=== PATIENT | female | born 2000 | race Caucasian/White ===

== ENCOUNTER 2023-12-15 18:56 | Emergency (ER) | payer BC, SELFPAY ==
[2023-12-15 19:03] VITALS: BP 131/95
[2023-12-15 19:17] LABS: % Basophils 0.6 % (0-2); % Eosinophils 0.4 % (0-6); % Immature Granulocytes 0.1 % (0-0.5); % Lymphocytes 32.2 % (20.5-51.1); % Monocytes 6.1 % (1.7-9.3); % Neutrophils 60.6 % (42.2-75.2); Absolute Lymphocytes 2.2 10^3/uL (1.2-3.4); Absolute Monocytes 0.4 10^3/uL (0.1-0.6); Absolute Neutrophils 4.1 10^3/uL (1.4-6.5); Hematocrit 35.2 % (37.0-47.0); Hemoglobin 12.7 g/dL (12.0-16.0); Mean Corp Hgb Conc. 36.1 g/dL (33.0-37.0); Mean Corpuscular Hgb 31.8 pg (27.0-31.0); Mean Corpuscular Volume 88.2 fL (81.0-99.0); Mean Platelet Volume 9.8 fL (7.4-10.4); Nucleated Red Blood Cells % 0 %; Platelet Count 309 10^3/uL (130-400); Red Blood Cell Count 3.99 10^6/uL (4.20-5.40); Red Cell Dist. Width 11.8 % (11.5-14.5); White Blood Cell Count 6.7 10^3/uL (4.8-10.8)
[2023-12-15 19:32] LABS: HCG, Serum Qualitative Screen Negative
[2023-12-15 19:36] LABS: ALT (SGPT) 13 U/L (0-35); AST (SGOT) 22 U/L (14-36); Albumin 5.2 g/dl (3.5-5.0); Alkaline Phosphatase 54 U/L (38-126); Blood Urea Nitrogen 10 mg/dl (7-17); Calcium 10.1 mg/dl (8.4-10.2); Carbon Dioxide 23 mmol/L (22-30); Chloride 102 mmol/L (98-107); Glucose 95 mg/dl (70-99); Potassium 3.9 mmol/L (3.5-5.1); Sodium 141 mmol/L (135-145); Total Bilirubin 0.6 mg/dl (0.2-1.3); eGFR > 60.00
[2023-12-15 19:41] LABS: Troponin I < 0.012 ng/ml
[2023-12-15 20:43] VITALS: BP 113/80; BP 115/84; BP 123/68; PULSE 88; PULSE 98
[2023-12-15] MEDS: ATIVAN 0.5 MG PO (20:58)
[2023-12-15 21:19] VITALS: BP 115/84
--- NOTE | 2023-12-15 22:47 | ED.GENMED ---
History of Present Illness
General
Chief Complaint: Chest Pain
Source: patient
Exam Limitations: none
Time Seen by Provider: 12/15/23 20:17
Nursing documentation reviewed up to this point in time: agreed with
History of Present Illness
History of Present Illness:
Patient to ED with comoplaint of intermittent chest pain, rapid heart rate. Has had chest pain on and off for the past month but became worse today. She went to and was then referred to ED. States she was evaluted by PCP when symptoms first
began. PCP felt symptoms were related to stress, and she agrees with that. He suggested Buspirone for her but she wanted to think about it before starting medication. Brought to ED by parents for eval. SHe denies SI/HI.
Past History
Past History
ED Past Medical History: None
ED Past Surgical History: None
Social History
Tobacco: Vaping (stopped vaping 1.5months ago.)
Alcohol: Other (Stopped drinking 1.5months ago)
Review of Systems
Review of Systems
All Other Systems: ROS reviewed and negative except as documented in HPI and ROS
Constitutional: Reports no symptoms
EENT: Reports no symptoms
Respiratory: Reports no symptoms
Cardiac: Reports chest pain and palpitations
ABD/GI: Reports no symptoms
: Reports no symptoms
Musculoskeletal: Reports no symptoms
Skin: Reports no symptoms
Neurological: Reports no symptoms
Psychiatric: Reports no symptoms
Phy Exam
General Physical Exam
General Presentation: well appearing
General age: appears stated age
General Skin: warm and dry
General Habitus: normal
Cardiovascular Exam
Cardiovascular Exam: regular rate/rhythm
Neurological Exam
Neurological Exam: alert, oriented x3, no motor deficits and normal gait
Musculoskeletal Exam
Musculoskeletal Exam: full ROM
Skin Exam
Skin Exam: normal color, warm/dry and no rash
Psychiatric Exam
Psychiatric Exam: anxious
Scores
Heart Score for Chest Pain Patients
STEMI patient?: Not applicable
Course
Orders/Labs/Results
Orders:
Orders
12/15/23 18:57
Electrocardiogram (*1) Urgent
Reason for Study: Chest Pain
EKG- Treatment ONCE
12/15/23 19:06
Test Result ONCE
12/15/23 19:10
Complete Blood Count/With Diff Urgent
Comprehensive Metabolic Panel Urgent
HCG, Serum Qualitative Screen Urgent
Comment: Notify provider if positive test present
Troponin I Urgent
12/15/23 20:43
Orthostatic VS- Treatment ONCE
Lorazepam [Ativan] 0.5 mg PO NOW STA
12/15/23 21:12
Crisis Consult Urgent
Reason for Consult: anxiety
Abnormal Lab Results
12/15/23
19:10
RBC 3.99 L 10^6/uL
(4.20-5.40)
Hct 35.2 L %
(37.0-47.0)
MCH 31.8 H pg
(27.0-31.0)
Albumin 5.2 H g/dl
(3.5-5.0)
12/15/23 19:10
12/15/23 19:10
Vital Signs
Initial and Last Documented VS:
Initial Vital Signs
Temp Pulse Resp BP Pulse Ox
99.3 F 110 20 131/95 99
12/15/23 19:03 12/15/23 19:03 12/15/23 19:03 12/15/23 19:03 12/15/23 19:03
Last Documented Vital Signs
Temp Pulse Resp BP Pulse Ox
99.3 F 98 16 115/84 99
12/15/23 19:03 12/15/23 21:19 12/15/23 21:19 12/15/23 21:19 12/15/23 21:19
*Critical Care Note
Total Time (30-74mins, 75-104mins- exclusive of procedures): Not Applicable
Update Note
Update Note:
Patient to ED with complaint of intermittent CP. She was seen by PCP who feels this may be stressed/anxiety related. Spoke with her in private. SHe is very tearful. Admits to being unhappy in her job for the past year. Notes heavy drinking and
vaping until early november when she stopped both. Agrees that she may need medication at this point. Agreeable to speak with crisis for outpatient follow up. Given ativan in dept and she will follow up wt PCP in AM. Given instructions s/s to
return to ED and she is agreeable to plan.
ED Attending Note
-
Portions of this chart may have been created with voice recognition software.� Occasional wrong word or��sound alike� substitutions may have occurred due to the inherent limitations of voice recognition software.
Discharge Plan
Departure
Patient Disposition: Home (Routine Discharge)
Date of Disposition: 12/15/23
Time of Disposition: 21:45
Patient with high blood pressure during this ER visit?: No
Condition: Good
Covid-19: Not Applicable
Discharge Problem:
Anxiety
Instructions: Anxiety, Adult ED
Referrals:
Robert Lagos MD [Family Provider] - Tomorrow
Interventions
Interventions:
*Risk Screen - Suicide Last Done: 12/15/23 19:03
*General Assessment Last Done: 12/15/23 19:03
*Neglect/Abuse Screening Last Done: 12/15/23 19:03
ED- Fall Risk Assessment Last Done: 12/15/23 21:54
*ED COVID-19 Vaccine History Last Done: 12/15/23 21:54
*Nursing Disposition Last Done: 12/15/23 21:54
ED- Cardiac Assessment Last Done: 12/15/23 21:16
Discharge Date and Time
Discharge Date/Time: 12/15/23 21:55
Print Language: VENEZUELAN
== END 2023-12-15 21:55 | disposition home or self-care (01) ==
LOC: EMR 18:56
PROVIDERS: Emergency Medicine; EMERGENCY PHYSICIAN Student in an Organized Health Care Education/Training Program; FAMILY PHYSICIAN Family Medicine
DX: F41.9 Anxiety disorder, unspecified (principal); Z87.891 Personal history of nicotine dependence
CPT/HCPCS: 99283; 80053; 84484; 84703; 85025; 93005